=== PATIENT | male | born 1980 ===

== ENCOUNTER 2023-05-26 11:15 | Emergency (ER) | payer BC ==
--- NOTE | 2023-05-26 11:46 | ED ---
Psych HPI - General Source: patient, family, RN notes reviewed <Benoit Patiño - Last Filed: 05/26/23 11:45> - General Source: patient, family, RN notes reviewed Limitations: no limitations <Ryan Moreno - Last Filed: 05/26/23 15:17> - General Stated Complaint: Mental health Time Seen by Provider: 05/26/23 11:45 - History of Present Illness Initial Comments: Quick note: Patient is a a 43-year-old male presented to ER with a chief complaint of EPS evaluation. Family is providing HPI. States he has been hearing voices and tried to check into [facility] for rehab of meth. Patient has recently stated he wanted to "blow his brains out". No access to weapons at home. (Benoit Patiño) Patient is a 43-year-old male present to the emergency department for mental health evaluation. Patient was trying to check into [facility] but was advised to come for mental health evaluation. Patient does have suicidal thoughts. Patient denies plan to me. Patient does use meth. Patient's mood does cycle. Patient has not been sleeping well, partially because of meth use. Patient has not been eating or drinking well. Patient does have hallucinations. Patient hears voices that used to be his friends however now tell him bad things, sometimes to hurt himself. Patient denies homicidal thoughts. No new physical complaints. (Ryan Moreno) - Related Data Allergies Allergy/AdvReac Type Severity Reaction Status Date / Time No Known Allergies Allergy Verified 05/26/23 11:55 Review of Systems ROS Other: All systems not noted in ROS Statement are negative. <Benoit Patiño - Last Filed: 05/26/23 11:45> ROS Other: All systems not noted in ROS Statement are negative. Constitutional: Denies: fever Eyes: Denies: eye pain ENT: Denies: ear pain Respiratory: Denies: cough Cardiovascular: Denies: palpitations Psychiatric: Reports: depression, auditory hallucinations, suicidal thoughts <Ryan Moreno - Last Filed: 05/26/23 15:17> ROS Statement: Those systems with pertinent positive or pertinent negative responses have been documented in the HPI. General Exam <Benoit Patiño - Last Filed: 05/26/23 11:45> Limitations: no limitations General appearance: alert, in no apparent distress Head exam: Present: normocephalic Eye exam: Present: normal appearance Neck exam: Present: normal inspection Respiratory exam: Present: normal lung sounds bilaterally Cardiovascular Exam: Present: regular rate, normal rhythm GI/Abdominal exam: Present: soft. Absent: tenderness Extremities exam: Present: normal inspection Neurological exam: Present: alert Psychiatric exam: Present: flat affect Skin exam: Present: normal color <Ryan Moreno - Last Filed: 05/26/23 15:17> - General Exam Comments Initial Comments: Visual Physical Exam Vital signs reviewed General: Well-appearing, nontoxic, no acute distress. Head: Normocephalic, atraumatic Eyes: PERRLA, EOMI ENT: Airway patent Chest: Nonlabored breathing Skin: No visual rash, normal skin tone Neuro: Alert and oriented 3 Musculoskeletal: No gross abnormalities (Benoit Patiño) Course Vital Signs 05/26/23 05/26/23 11:52 13:18 Temperature 99 F 97.4 F L Pulse Rate 69 64 Respiratory 20 18 Rate Blood Pressure 117/84 122/74 O2 Sat by Pulse 100 98 Oximetry Medical Decision Making <Benoit Patiño - Last Filed: 05/26/23 11:45> <Ryan Moreno - Last Filed: 05/26/23 15:17> - Medical Decision Making I performed the quick note portion of this chart. Electronically signed by Benoit Patiño PA-C (Benoit Patiño) Was pt. sent in by a medical professional or institution (MICHAEL Gonsalez, GATEHOUSE ATTENDANT, urgent care, hospital, or residential...) When possible be specific @ -No Did you speak to anyone other than the patient for history (EMS, parent, family, police, friend...)? What history was obtained from this source @ -Family is present and helps provide history the patient is somewhat reluctant Did you review nursing and triage notes (agree or disagree)? Why? @ -I reviewed and agree with nursing and triage notes Were old charts reviewed (outside hosp., previous admission, EMS record, old EKG, old radiological studies, urgent care reports/EKG's, residential records)? Report findings @ -No old charts were reviewed Differential Diagnosis (chest pain, altered mental status, abdominal pain women, abdominal pain men, vaginal bleeding, weakness, fever, dyspnea, syncope, headache, dizziness, GI bleed, back pain, seizure, CVA, palpatations, mental health, musculoskeletal)? @ -Differential Mental Health Depression, anxiety, bipolar, psychosis, schizophrenia, borderline personality, situational depression, adjustment disorder, behavioral disorder, brain tumor, malingering, substance abuse, encephalopathy, medication reaction, dementia, hypothyroidism, degenerative neurologic disorder, lupus.... This is not meant to be all-inclusive list EKG interpreted by me (3pts min.). @ -As above X-rays interpreted by me (1pt min.). @ -None done CT interpreted by me (1pt min.). @ -None done U/S interpreted by me (1pt. min.). @ -None done What testing was considered but not performed or refused? (CT, X-rays, U/S, labs)? Why? @ -None What meds were considered but not given or refused? Why? @ -None Did you discuss the management of the patient with other professionals (professionals i.e. , PA, GATEHOUSE ATTENDANT, lab, RT, psych nurse, social services director, hunting sales leader, teacher, minesweeping officer, therapeutic case manager)? Give summary @ -I did speak with mental health nurse with plans for psychiatric admission Was smoking cessation discussed for >3mins.? @ -No Was critical care preformed (if so, how long)? @ -No Were there social determinants of health that impacted care today? How? (Homelessness, low income, unemployed, alcoholism, drug addiction, transportation, low edu. Level, literacy, decrease access to med. care, [facility], rehab)? @ -No Was there de-escalation of care discussed even if they declined (Discuss DNR or withdrawal of care, Hospice)? DNR status @ -No What co-morbidities impacted this encounter? (DM, HTN, Smoking, COPD, CAD, Cancer, CVA, ARF, Chemo, Hep., AIDS, mental health diagnosis, sleep apnea, morbid obesity)? @ -None Was patient admitted / discharged? Hospital course, mention meds given and route, prescriptions, significant lab abnormalities, going to OR and other pertinent info. @ -Patient presents with depression and suicidal ideation and auditory hallucinations on top of drug use. Patient will be admitted for psychiatric care. Undiagnosed new problem with uncertain prognosis? @ -No Drug Therapy requiring intensive monitoring for toxicity (Heparin, Nitro, Insulin, Cardizem)? @ -No Were any procedures done? @ -No Diagnosis/symptom? @ -Depression, suicidal ideation, psychosis, drug abuse Acute, or Chronic, or Acute on Chronic? @ -Acute, acute, acute, acute Uncomplicated (without systemic symptoms) or Complicated (systemic symptoms)? @ -Complicated with auditory hallucinations Side effects of treatment? @ -No Exacerbation, Progression, or Severe Exacerbation? @ -No Poses a threat to life or bodily function? How? (Chest pain, USA, NM, pneumonia, PE, COPD, DKA, ARF, appy, cholecystitis, CVA, Diverticulitis, Homicidal, Suicidal, threat to staff... and all critical care pts) @ -No (Ryan Moreno) - Lab Data Lab Results 05/26/23 Range/Units 14:41 Urine Opiates Screen Not Detected (NotDetected) Ur Oxycodone Screen Not Detected (NotDetected) Urine Methadone Screen Not Detected (NotDetected) Ur Barbiturates Screen Not Detected (NotDetected) U Tricyclic Antidepress Not Detected (NotDetected) Ur Phencyclidine Scrn Not Detected (NotDetected) Ur Amphetamines Screen Not Detected (NotDetected) U Methamphetamines Scrn Not Detected (NotDetected) U Benzodiazepines Scrn Not Detected (NotDetected) Urine Cocaine Screen Detected H (NotDetected) U Marijuana (THC) Screen Not Detected (NotDetected) Disposition <Benoit Patiño - Last Filed: 05/26/23 11:45> Is patient prescribed a controlled substance at d/c from ED?: No Time of Disposition: 15:17 <Ryan Moreno - Last Filed: 05/26/23 15:17> Clinical Impression: Depression, Suicidal ideation, Psychosis, Substance abuse Disposition: TRANSFER TO PSYCH HOSP/UNIT Referrals: None,Stated [Primary Care Provider] - 1-2 days
[2023-05-26 13:30] VITALS: RESP 18
[2023-05-26 15:07] LABS: Amphetamine Screen,Urine Not Detected (NotDetected); Barbiturate Screen,Urine Not Detected (NotDetected); Benzodiazepines Screen,Urine Not Detected (NotDetected); Cocaine Screen,Urine Detected (NotDetected); Methadone Screen, Urine Not Detected (NotDetected); Opiate Screen,Urine Not Detected (NotDetected); Oxycodone Screen, Urine Not Detected (NotDetected); Phencyclidine Screen,Urine Not Detected (NotDetected); Tricyclic Antidepressant,Urine Not Detected (NotDetected); Urn Cannabinoid Scrn Not Detected (NotDetected)
[2023-05-26] MEDS: ACETAMINOPHEN TAB 500 MG TAB PO STA (15:38)
[2023-05-27 00:51] VITALS: BP 133/78; PULSE 67; TEMP 98
== END 2023-05-27 00:41 ==
LOC: EC 11:15
DX: F32.A Depression, unspecified (principal); R45.851 Suicidal ideations; F29 Unspecified psychosis not due to a substance or known physiological condition; F19.10 Other psychoactive substance abuse, uncomplicated; Z20.822 Contact with and (suspected) exposure to COVID-19
CPT/HCPCS: 80306; 82075; 87636; 99285